=== PATIENT | female | born 1995 | race Caucasian/White ===

== ENCOUNTER → 2017-12-27 14:06 | Outpatient (CLI) | payer BC, SELFPAY ==
--- NOTE | 2017-12-27 14:09 | VDLE_ITS ---
Reason For Study: RT LEG PAIN RIGHT LEFT GSV is normal. CFV is compressible, spontaneous, phasic, CFV is compressible, spontaneous, phasic, competent, and demonstrates normal competent and demonstrates normal augmentation. augmentation. FV is compressible, spontaneous, phasic, competent and demonstrates normal augmentation. POP V is compressible, spontaneous, phasic, competent and demonstrates normal augmentation. T/P Trunk is compressible. PTV is compressible. RT PerV is compressible. Procedure Exam performed in department. A preliminary report was called and/or faxed to LYNETTE REEDER. Interpretation Summary Deep veins of the right lower extremity are patent and compressible segmentally. There is no evidence of right lower extremity deep vein thrombosis. Valvular competence appears intact within the proximal deep venous system on the right . The right greater saphenous vein appears patent and compressible segmentally. Ordering Physician: Lynette Reeder Referring Physician: EDU FOSTER Performed By: Lary Balderrama, PAUL, RVT
== END ==
PROVIDERS: Family Provider Family Medicine; PCP Family Medicine; Visit Provider Nurse Practitioner Adult Health
DX: M79.604 Pain in right leg (principal)
CPT/HCPCS: 93971

== ENCOUNTER → 2018-01-23 13:58 | Outpatient (CLI) | payer BC, SELFPAY ==
[2018-01-23 14:58] LABS: Absolute Lymphocyte Count 2.09 X10^3/ul (0.83-4.51); Absolute Neutrophil Count 3.3 X10^3/uL (2.0-7.7); Basophil# 0.04 X10^3/uL; Basophil% 0.7 % (0-1); Eosinophil# 0.12 X10^3/uL; Erythrocyte Sedimentation Rate 5 mm/hr (0-20); Hemoglobin 14.9 g/dl (12.0-15.0); Lymphocyte # 2.09 X10^3/ul (4.0); Lymphocyte % 34.7 % (19-41); Mean Corp Hgb Conc 33.9 g/gl (32-36); Mean Corpuscular Hgb 29.3 pg (27.0-32.0); Mean Corpuscular Volume 86.4 fL (81-99); Mean Platelet Vol. 12.5 fl (6.2-12.0); Monocyte# 0.52 X10^3/uL; Monocyte% 8.6 % (0-10); Neutrophil # 3.25 X10^3/uL (2.7-7.7); Neutrophil % 53.8 % (47-70); Platelet Count 183 K/mm3 (150-450); RBC Distribution Width CV 12.4 % (11.6-14.6); RBC Distribution Width SD 39.5 fl (35.1-43.9); Red Blood Count 5.09 M/mm3 (4.2-5.4)
[2018-01-23 14:59] LABS: POSITIVE COUNT NO; POSITIVE DIFFERENTIAL NO; POSITIVE MORPHOLOGY NO
[2018-01-23 15:00] LABS: CRP < 2.90 mg/L (0.0-3.0)
== END ==
PROVIDERS: Family Provider Family Medicine; PCP Family Medicine; Visit Provider Family Medicine
DX: L03.90 Cellulitis, unspecified (principal); S82.891S Other fracture of right lower leg, sequela
CPT/HCPCS: 36415; 85025; 85652; 86140

== ENCOUNTER → 2018-01-31 16:41 | Outpatient (CLI) | payer BC, SELFPAY ==
--- NOTE | 2018-01-31 17:00 | CT_ITS ---
Exam: CT of the right ankle, noncontrast. HISTORY: Right ankle fracture. Possible infection. COMPARISON: Previous CT scan 08/03/2017. DLP: 351 CTDI: 15 FINDINGS: No definite change. Stable appearance of compression plate and screws across the distal fibula. Stable appearance of fixation device through the tibia and fibula. Normal ankle mortise. No focal destructive lesions or specific evidence for osteomyelitis. No evidence for soft tissue gas. No definite fracture line is visible through the fibula. CT/Extremity Lower WITH Contrast IMPRESSION: No focal destructive lesions or specific evidence for osteomyelitis. Electronically Signed: Noe Aguilar MD at 10:46 EDT , Service support ,
== END ==
PROVIDERS: Family Provider Family Medicine; PCP Family Medicine; Visit Provider Family Medicine
DX: S82.891S Other fracture of right lower leg, sequela (principal)
CPT/HCPCS: 73701

== ENCOUNTER → 2018-02-12 08:11 | Outpatient (CLI) | payer BC, SELFPAY ==
[2018-02-12 10:16] LABS: Absolute Lymphocyte Count 1.09 X10^3/ul (0.83-4.51); Absolute Neutrophil Count 3.2 X10^3/uL (2.0-7.7); Basophil# 0.01 X10^3/uL; Basophil% 0.2 % (0-1); Eosinophil# 0.08 X10^3/uL; Eosinophils% 1.6 % (0-5); Hematocrit 41.2 % (37-47); Hemoglobin 14.1 g/dl (12.0-15.0); Lymphocyte # 1.09 X10^3/ul (4.0); Lymphocyte % 22.1 % (19-41); Mean Corp Hgb Conc 34.2 g/gl (32-36); Mean Corpuscular Hgb 29.7 pg (27.0-32.0); Mean Corpuscular Volume 86.9 fL (81-99); Mean Platelet Vol. 12.5 fl (6.2-12.0); Monocyte# 0.57 X10^3/uL; Monocyte% 11.6 % (0-10); Neutrophil # 3.17 X10^3/uL (2.7-7.7); Neutrophil % 64.3 % (47-70); Platelet Count 174 K/mm3 (150-450); RBC Distribution Width CV 12.3 % (11.6-14.6); RBC Distribution Width SD 38.4 fl (35.1-43.9); Red Blood Count 4.74 M/mm3 (4.2-5.4); White Blood Count 4.9 K/mm3 (4.4-11.0)
[2018-02-12 10:21] LABS: POSITIVE COUNT NO; POSITIVE DIFFERENTIAL NO; POSITIVE MORPHOLOGY NO
[2018-02-12 10:27] LABS: ALB/GLOB Ratio 0.9 RATIO (0.9-2.4); AST(SGOT) 24 U/L (15-37); Alanine Aminotransfer ALT/SGPT 39 U/L (13-56); Albumin, Serum 3.5 g/dL (3.2-5.0); Alkaline Phosphatase 93 U/L (45-117); Anion Gap 5 (5-15); BUN 10 mg/dL (7-18); BUN/Creat Ratio 13.2 RATIO (10-20); Calcium,Total 8.2 mg/dL (8.5-10.1); Chloride 106 mmol/L (98-107); Creatinine, Serum 0.76 mg/dL (0.55-1.02); EST Glomerular Filtration Rate 103 mL/min (>60); Est Glom Filt Rate - Afr Amer 124 mL/min (>60); Globulin 3.8 g/dL (2.2-4.2); Glucose 90 mg/dL (74-106); Protein, Total 7.3 g/dL (6.4-8.2); Sodium Level 138 mmol/L (136-145)
== END ==
PROVIDERS: Family Provider Family Medicine; PCP Family Medicine; Visit Provider Family Medicine
DX: Z01.818 Encounter for other preprocedural examination (principal)
CPT/HCPCS: 36415; 80053; 85025

== ENCOUNTER 2018-02-19 11:39 | Day surgery (SDC) | payer BC, SELFPAY ==
[2018-02-19 11:57] LABS: Internal QC Validated? YES +Cl - CLEAR BKGD; Pregnancy, Urine Negative Negative
[2018-02-19 12:02] VITALS: BP 124/79; PULSE 79; RESP 18; TEMP 36.4; O2SAT 100; BMI 28.2
--- NOTE | 2018-02-19 13:15 | RAD_ITS ---
STUDY: X-RAY - RIGHT ANKLE REASON FOR EXAM: Female, 22 years old. Hardware removal right ankle TECHNIQUE: 4 view(s) of the ankle. COMPARISON: ct 3..18 FINDINGS: Sideplate has been removed from the distal fibula. Lucent areas are visualized within the distal fibula consistent for prior hardware placement. Normal tibiotalar articulation and ankle mortise. A cortical screw has been removed from the medial malleolus. Normal visualized talus and calcaneus. The visualized subtalar, talonavicular, calcaneocuboid and tarsal articulations are normal. The soft tissue structures are unremarkable. RAD/Ankle min 3 Views IMPRESSION: Successful hardware removal. Electronically Signed: Van Dao MD at 16:57 EDT , Service support ,
--- NOTE | 2018-02-19 13:20 | CYST_PTH ---
PATIENT: SAPPHIRE MARQUEZ LOC: [facility] [place] U#:[id number] AGE/SX: 22/F ROOM: RE02/19/[address]: Dr. Gerard Galvan DPM : 1995 BED: DIS: 02/19/2018 SPEC #: [id number] RECD: 02/19/18 15:57 STATUS: LEIF CHAMP #: [id number] JACOB: 02/19/18 13:[address]: Gerard Galvan DEPT: SURGICAL PATHOLOGY RECD BY: Gurvinder De La Torre ENTERED: 02/20/18 09:19 SP TYPE: Cyst OTHR DR: Dr. Vincent Argueta MD Tissues: CYST Procedures: Special Stain Group I Surgery Specimen Level IV AFB Stain (control) GMS Stain (control) HEADER OPERATION: Removal hardware, right ankle with possible mass/cyst removal PRE-OP DIAGNOSIS: Retained hardware right ankle TISSUE SUBMITTED: Cyst right ankle MICROSCOPIC DIAGNOSIS Cyst of right ankle, excision: Fibrous tissue with associated acute and chronic inflammation and granulation. Negative for acid-fast bacilli and fungal organisms. AM:ivrgie 02/21/18 COMMENT AFB and GMS stains with matched controls were used in the evaluation of this case. MICROSCOPIC DESCRIPTION Slides are reviewed. GROSS DESCRIPTION Received in fixative is one container labeled with the patient's name and designated ankle cyst. The specimen consists of multiple irregular fragments of light to dark stephens soft tissue that in aggregate measure 3 x 2.2 x 0.2 cm. The specimen is totally submitted in two cassettes. / AM:virgie 02/20/18 TC:2 CPT: 67913, 36021 x2
[2018-02-19] MEDS: Cefazolin 2 GM in 0.9% Normal Saline 100 ML IV (13:44)
[2018-02-19] MEDS: Bupivacaine Mpf 0.5% 30 ML VIAL (14:52)
--- NOTE | 2018-02-19 15:01 | PCM.DC.POD ---
Discharge Diet: Light diet - advance as tolerated Discharge Activity: May Not Drive Weight Bearing Status: Partial weight bearing - Protected weightbearing right foot/ankle with use of CAM Walker boot Call your doctor if your incision/area has: Continuous Slow Oozing, Sudden Increased Bleeding, Increased Pain/ Swelling, Foul Smelling Discharge Call your doctor if you observe: Fever of 101 or Higher, Coldness, Increased Pain, Shortness of breath, Chest pain, Increased palpitations (irregular heartbeat), Calf discomfort, Uncontrolled pain Cleanse incision/area with: Do not get Incision Wet, Keep Dressing Clean & Dry Allergies/Adverse Reactions: Allergies copper Allergy (Verified 02/19/18 12:01) Rash oseltamivir [From Tamiflu] Allergy (Verified 02/19/18 12:01) Rash Medications to take at Discharge Hydrocodone/Acetaminophen [Vicodin 5-300 mg Tablet] 1 - 2 tab PO Q6H PRN PRN 3 Days #30 tab 02/19/18 The following prescriptions were given: Hydrocodone/Acetaminophen [Vicodin 5-300 mg Tablet] 1 - 2 tab PO Q6H PRN PRN 3 Days #30 tab PRN Reason: Pain Primary Care Physician: Khanh Argueta MD [Primary Care Provider] - Please Follow Up With: Gerard Galvan DPM When: within 1 week or sooner if needed
--- NOTE | 2018-02-19 15:02 | PCM.OPRPT ---
Report of Operation Date of Procedure: 02/19/18 Pre-Operative Diagnosis: Painful hardware right ankle. Soft tissue mass/cyst (possible abscess) right ankle Post-Operative Diagnosis: Same Surgery/Procedure Performed:: Removal of hardware right ankle. Mass/cyst (possible abscess) removal right ankle geophysical party chief: Yes - Dr. Mena Type of Anesthesia:: General Specimen's removed: 1. Excised mass/cyst (possible abscess) sent to pathology. 2. Culture of soft tissue right ankle sent to microbiology. 3. Culture of bone right fibular sent to microbiology Description of Procedure: Indications: This is a 22 year old female with history of right ankle fracture s/p open reduction internal fixation by Dr. Solorzano. Patient subsequently developed painful hardware with possible underlying soft tissue mass/cyst/abscess. She has elected to proceed forward with removal of the painful retained hardware with removal/excision of possible mass/cyst/abscess. This was discussed with her in great detail, the procedure was reviewed with her as well as all of the possible benefits, risks, goals, expectations, typical/estimated healing time. She expressed understanding and agreement. The consent forms were reviewed with her and she freely signed them. All of her questions were answered. No guarantees were given nor implied. Operative Procedure: The patient was brought back to the operating room and was placed on the operating room table in the supine position. She was carefully secured to the operating room table with a safety belt around her waist. A time out was performed and the patient was properly identified and the surgical plan was confirmed. The patient received 2 grams of IV Ancef for antibiotic prophylaxis. A well padded pneumatic tourniquet was applied around the right thigh. The patient did receive general anesthesia per the anesthesiologist. The right foot/ankle/leg were scrubbed, prepped, draped in the usual aseptic fashion. A timeout was performed and the patient was properly identified and the surgical plan was confirmed. The right foot was elevated for 3 minutes and the right thigh pneumatic tourniquet was inflated to 350mmHg. Attention was directed to the right ankle. There questionable soft tissue mass directly overlying the distal fibular plate as the site was soft consistent with possible mass/cyst/chronic abscess. 5.5mL of 0.5% Bupivacaine plain was given around the lateral ankle for further pain control. A linear longitudinal skin incision was made overlying the lateral distal fibula. Careful dissection was completed down through the subcutaneous tissue layer. A soft tissue mass was encountered localized to the area. This was incised and was carefully dissected out, it was excised. Of note, when it was incised there was a pale whitish fluid present, questionable purulence consistent with a chronic abscess. The mass/abscess was encapsulated, which was excised and removed, it was sent to pathology for further evaluation. The contents were cultured and sent to microbiology for further evaluation. The site was flushed out with copious amounts of normal saline solution, and there was no evidence of remaining mass/abscess at this time. An incision was made overlying the fibular plate. Dissection was complete down to the fibular plate. The plate was identified and was removed, removing the screws as well, in toto. Also the interfragment screw was identified and was removed in toto. The syndesmotic tightrope was identified and was removed from the lateral aspect. A small skin incision was made to the medial ankle at the level of the medial button of the syndesmotic tightrope. Dissection was completed down to the medial button, and this was removed in toto. There was noted to be a ledge of prominent bone to the lateral aspect of the distal fibula at the site of the previous fracture. This ledge of prominent bone was resected using a bone cutting rongeur, and this was sent to microbiology as a bone culture. The bone was hard, white, and healthy in appearance. The fracture was healed. The remaining tissues appeared to be healthy and viable, appeared to be free of infection, there was no necrosis, no purulence, no jose tissue at this time. The peroneal tendons appeared to be healthy and viable. The ankle was put through range of motion and there was noted to be good, smooth range of motion with no popping, clicking or crepitus present. The distal tib fib syndesmosis was stressed and was stable with no instability present. There was no gapping at the medial gutter, and there was normal tib fib overlap. There was no instability to the ankle, negative anterior drawer, and normal talar tilt at this time. Intraoperative flouroscopy was used to confirm this as well as complete resection of all hardware. The site was flushed out with copious amounts of normal saline solution. Due to her Vicryl allergy/previous reaction, this was not used. The skin was reapproximated using 3-0 Nylon. All vital structure, including all vital neurovascular structures were properly identified and protected as necessary throughout the procedure. The pneumatic tourniquet was deflated, there was immediate return of vascular flow to the foot, ankle and all toes. CFT < 2 seconds to all toes, and had normal temperature gradient present. An additional 10mL of 0.5% Bupivacaine plain was given as a local nerve block around the surgical site for further post operative pain control. A dressing was applied which consisted of Betadine soaked adaptic, 4x4 gauze, kerlix and marcella dressing. The patient tolerated the above operative procedure well at the anesthesia well with no complications. The patient was transported to the recovery room with vital signs stable and in good condition. Post operative orders were placed. Post operative instructions were reviewed with patient and her mother (who was with patient today). Protected weightbearing right foot with use of CAM Walker, keep right foot elevated, keep dressing clean, dry and intact. Prescription for Percocet 5mg/325mg was prescribed: 1-2 tabs PO q 6 hours PRN pain for pain control (relates she had Vicodin before and did not help). Patient to follow up with me within 1 week, sooner if needed. Grafts/Implants Used: None - Complications None
--- NOTE | 2018-02-19 15:05 | OP.PCM_ITS ---
Report of Operation Date of Procedure: 02/19/18 Pre-Operative Diagnosis: Painful hardware right ankle. Soft tissue mass/cyst ( possible abscess) right ankle Post-Operative Diagnosis: Same Surgery/Procedure Performed:: Removal of hardware right ankle. Mass/cyst ( possible abscess) removal right ankle superintendent drilling: Yes - Dr. Mena Type of Anesthesia:: General Specimen's removed: 1. Excised mass/cyst (possible abscess) sent to pathology. 2. Culture of soft tissue right ankle sent to microbiology. 3. Culture of bone right fibular sent to microbiology Description of Procedure: Indications: This is a 22 year old female with history of right ankle fracture s /p open reduction internal fixation by Dr. Solorzano. Patient subsequently developed painful hardware with possible underlying soft tissue mass/cyst/ abscess. She has elected to proceed forward with removal of the painful retained hardware with removal/excision of possible mass/cyst/abscess. This was discussed with her in great detail, the procedure was reviewed with her as well as all of the possible benefits, risks, goals, expectations, typical/estimated healing time. She expressed understanding and agreement. The consent forms were reviewed with her and she freely signed them. All of her questions were answered. No guarantees were given nor implied. Operative Procedure: The patient was brought back to the operating room and was placed on the operating room table in the supine position. She was carefully secured to the operating room table with a safety belt around her waist. A time out was performed and the patient was properly identified and the surgical plan was confirmed. The patient received 2 grams of IV Ancef for antibiotic prophylaxis. A well padded pneumatic tourniquet was applied around the right thigh. The patient did receive general anesthesia per the anesthesiologist. The right foot/ankle/leg were scrubbed, prepped, draped in the usual aseptic fashion. A timeout was performed and the patient was properly identified and the surgical plan was confirmed. The right foot was elevated for 3 minutes and the right thigh pneumatic tourniquet was inflated to 350mmHg. Attention was directed to the right ankle. There questionable soft tissue mass directly overlying the distal fibular plate as the site was soft consistent with possible mass/cyst/chronic abscess. 5.5mL of 0.5% Bupivacaine plain was given around the lateral ankle for further pain control. A linear longitudinal skin incision was made overlying the lateral distal fibula. Careful dissection was completed down through the subcutaneous tissue layer. A soft tissue mass was encountered localized to the area. This was incised and was carefully dissected out, it was excised. Of note, when it was incised there was a pale whitish fluid present, questionable purulence consistent with a chronic abscess. The mass/abscess was encapsulated, which was excised and removed, it was sent to pathology for further evaluation. The contents were cultured and sent to microbiology for further evaluation. The site was flushed out with copious amounts of normal saline solution, and there was no evidence of remaining mass/ abscess at this time. An incision was made overlying the fibular plate. Dissection was complete down to the fibular plate. The plate was identified and was removed, removing the screws as well, in toto. Also the interfragment screw was identified and was removed in toto. The syndesmotic tightrope was identified and was removed from the lateral aspect. A small skin incision was made to the medial ankle at the level of the medial button of the syndesmotic tightrope. Dissection was completed down to the medial button, and this was removed in toto. There was noted to be a ledge of prominent bone to the lateral aspect of the distal fibula at the site of the previous fracture. This ledge of prominent bone was resected using a bone cutting rongeur, and this was sent to microbiology as a bone culture. The bone was hard, white, and healthy in appearance. The fracture was healed. The remaining tissues appeared to be healthy and viable, appeared to be free of infection, there was no necrosis, no purulence, no jose tissue at this time. The peroneal tendons appeared to be healthy and viable. The ankle was put through range of motion and there was noted to be good, smooth range of motion with no popping, clicking or crepitus present. The distal tib fib syndesmosis was stressed and was stable with no instability present. There was no gapping at the medial gutter, and there was normal tib fib overlap. There was no instability to the ankle, negative anterior drawer, and normal talar tilt at this time. Intraoperative flouroscopy was used to confirm this as well as complete resection of all hardware. The site was flushed out with copious amounts of normal saline solution. Due to her Vicryl allergy/previous reaction, this was not used. The skin was reapproximated using 3-0 Nylon. All vital structure, including all vital neurovascular structures were properly identified and protected as necessary throughout the procedure. The pneumatic tourniquet was deflated, there was immediate return of vascular flow to the foot , ankle and all toes. CFT < 2 seconds to all toes, and had normal temperature gradient present. An additional 10mL of 0.5% Bupivacaine plain was given as a local nerve block around the surgical site for further post operative pain control. A dressing was applied which consisted of Betadine soaked adaptic, 4x4 gauze, kerlix and marcella dressing. The patient tolerated the above operative procedure well at the anesthesia well with no complications. The patient was transported to the recovery room with vital signs stable and in good condition. Post operative orders were placed. Post operative instructions were reviewed with patient and her mother (who was with patient today). Protected weightbearing right foot with use of CAM Walker, keep right foot elevated, keep dressing clean, dry and intact. Prescription for Percocet 5mg/325mg was prescribed: 1-2 tabs PO q 6 hours PRN pain for pain control (relates she had Vicodin before and did not help). Patient to follow up with me within 1 week, sooner if needed. Grafts/Implants Used: None - Complications None
[2018-02-19 15:12] VITALS: BP 121/69; BP 124/79; PULSE 79; RESP 16; TEMP 36; O2SAT 92
[2018-02-19 15:15] VITALS: BP 121/60; BP 124/79; PULSE 63; RESP 16; O2SAT 100
[2018-02-19 15:30] VITALS: BP 121/66; BP 124/79; PULSE 84; RESP 16; O2SAT 98
[2018-02-19 15:45] VITALS: BP 124/79; BP 125/75; PULSE 82; RESP 16; TEMP 36.1; O2SAT 99
[2018-02-19 16:09] VITALS: BP 124/79
== END 2018-02-19 16:48 | disposition home or self-care (01) ==
LOC: SDC 11:40 → AC 11:43
PROVIDERS: Anesthesiology; Family Provider Family Medicine; PCP Family Medicine; Visit Provider Podiatrist
PROC: (CPT 20680; principal; 2018-02-19 13:05)
DX: T84.84XA Pain due to internal orthopedic prosthetic devices, implants and grafts, initial encounter (principal); M85.461 Solitary bone cyst, right tibia and fibula
CPT/HCPCS: 20680; 27635; 73610; 76000; 81025; 87070; 87075; 87077; 87186; 87205; 88304; 88305; 88312; J7120; J2405

== ENCOUNTER → 2018-03-12 11:50 | Outpatient (CLI) | payer BC, SELFPAY ==
[2018-03-12 14:18] LABS: Erythrocyte Sedimentation Rate 4 mm/hr (0-20); Hematocrit 39.4 % (37-47); Hemoglobin 13.4 g/dl (12.0-15.0); Mean Corpuscular Hgb 29.6 pg (27.0-32.0); Mean Corpuscular Volume 87.2 fL (81-99); Mean Platelet Vol. 13.7 fl (6.2-12.0); Platelet Count 147 K/mm3 (150-450); RBC Distribution Width CV 12.3 % (11.6-14.6); RBC Distribution Width SD 38.4 fl (35.1-43.9); Red Blood Count 4.52 M/mm3 (4.2-5.4); White Blood Count 4.2 K/mm3 (4.4-11.0)
[2018-03-12 14:20] LABS: Scan Indicated on CBC? Y/N NO
[2018-03-12 14:22] LABS: Anion Gap 7 (5-15); BUN 12 mg/dL (7-18); BUN/Creat Ratio 12.4 RATIO (10-20); Calcium,Total 8.8 mg/dL (8.5-10.1); Chloride 105 mmol/L (98-107); Creatinine, Serum 0.97 mg/dL (0.55-1.02); EST Glomerular Filtration Rate 77 mL/min (>60); Est Glom Filt Rate - Afr Amer 93 mL/min (>60); Glucose 90 mg/dL (74-106); Potassium 3.7 mmol/L (3.5-5.1); Sodium Level 135 mmol/L (136-145)
[2018-03-12 15:09] LABS: HIV - WCH Non-Reactive (Nonreactive)
[2018-03-13 04:08] LABS: HEPATITIS B SURFACE AG Negative (Negative)
[2018-03-13 17:42] LABS: Hep C Antibodies <0.1 s/co ratio (0.0-0.9); Hepatitis B Core AB IgM Negative (Negative)
== END ==
PROVIDERS: Internal Medicine Infectious Disease; Family Provider Family Medicine; PCP Family Medicine; Visit Provider Family Medicine
DX: M86.9 Osteomyelitis, unspecified (principal)
CPT/HCPCS: 36415; 80048; 85027; 85652; 86703; 86705; 86803; 87340

== ENCOUNTER → 2018-08-08 15:48 | Outpatient (CLI) | payer BC, SELFPAY ==
[2018-08-08 18:24] LABS: Estradiol 81.1 pg/mL; Prolactin 14.5 ng/mL; Thyroid Stim Hormone (TSH) 1.28 uIU/mL (0.358-3.74)
[2018-08-10 10:51] LABS: DHEA Sulfate 303.8 ug/dL (110.0-431.7)
== END ==
PROVIDERS: Family Provider Family Medicine; PCP Family Medicine; Visit Provider Family Medicine
DX: L70.9 Acne, unspecified (principal); R14.0 Abdominal distension (gaseous)
CPT/HCPCS: 36415; 82533; 82627; 82670; 84146; 84403; 84443; 82626

== ENCOUNTER → 2019-05-23 | Outpatient (CLI) | payer BC, SELFPAY ==
[2019-05-23 17:45] LABS: Absolute Neutrophil Count 3.8 X10^3/uL (2.0-7.7); Basophil# 0.05 X10^3/uL; Basophil% 0.7 % (0-1); Eosinophil# 0.11 X10^3/uL; Eosinophils% 1.6 % (0-5); Hematocrit 38.5 % (37-47); Hemoglobin 12.9 g/dl (12.0-15.0); Lymphocyte % 34.2 % (19-41); Mean Corp Hgb Conc 33.5 g/gl (32-36); Mean Corpuscular Hgb 29.6 pg (27.0-32.0); Mean Corpuscular Volume 88.3 fL (81-99); Mean Platelet Vol. 12.3 fl (6.2-12.0); Monocyte# 0.44 X10^3/uL; Monocyte% 6.5 % (0-10); Neutrophil # 3.82 X10^3/uL (2.7-7.7); Platelet Count 173 K/mm3 (150-450); RBC Distribution Width CV 12.1 % (11.6-14.6); RBC Distribution Width SD 38.6 fl (35.1-43.9); Red Blood Count 4.36 M/mm3 (4.2-5.4); White Blood Count 6.7 K/mm3 (4.4-11.0)
[2019-05-23 17:57] LABS: POSITIVE COUNT NO; POSITIVE DIFFERENTIAL NO; POSITIVE MORPHOLOGY NO
[2019-05-23 18:03] LABS: ALB/GLOB Ratio 1.1 RATIO (0.9-2.4); AST(SGOT) 21 U/L (15-37); Alanine Aminotransfer ALT/SGPT 22 U/L (13-56); Albumin, Serum 3.8 g/dL (3.2-5.0); Alkaline Phosphatase 61 U/L (45-117); BUN 15 mg/dL (7-18); BUN/Creat Ratio 17.1 RATIO (10-20); Calcium,Total 8.7 mg/dL (8.5-10.1); Chloride 101 mmol/L (98-107); Creatinine, Serum 0.88 mg/dL (0.55-1.02); EST Glomerular Filtration Rate 85 mL/min (>60); Est Glom Filt Rate - Afr Amer 103 mL/min (>60); Globulin 3.4 g/dL (2.2-4.2); Glucose 97 mg/dL (74-106); Potassium 3.2 mmol/L (3.5-5.1); Protein, Total 7.2 g/dL (6.4-8.2); Sodium Level 139 mmol/L (136-145)
[2019-05-23 18:04] LABS: Anion Gap 9 (5-15); Thyroid Stim Hormone (TSH) 0.96 uIU/mL (0.358-3.74)
== END | disposition home or self-care (01) ==
LOC: MTLAB 16:39
PROVIDERS: Family Provider Family Medicine; PCP Family Medicine; Referring Provider Family Medicine; Visit Provider Family Medicine
DX: R00.2 Palpitations (principal)
CPT/HCPCS: 36415; 80053; 83735; 84443; 85025

== ENCOUNTER → 2019-05-28 | Outpatient (CLI) | payer BC, SELFPAY ==
[2019-05-28 17:53] LABS: Potassium 3.8 mmol/L (3.5-5.1)
== END | disposition home or self-care (01) ==
LOC: MFPLAB 15:54
PROVIDERS: Family Provider Family Medicine; PCP Family Medicine; Referring Provider Family Medicine; Visit Provider Family Medicine
DX: E87.6 Hypokalemia (principal)
CPT/HCPCS: 36415; 84132

== ENCOUNTER → 2019-06-12 | Outpatient (CLI) | payer BC, SELFPAY ==
[2019-06-12 17:58] LABS: Potassium 3.6 mmol/L (3.5-5.1)
== END | disposition home or self-care (01) ==
LOC: MFPLAB 16:12
PROVIDERS: Family Provider Family Medicine; PCP Family Medicine; Referring Provider Family Medicine; Visit Provider Family Medicine
DX: E87.6 Hypokalemia (principal)
CPT/HCPCS: 36415; 84132

== ENCOUNTER → 2019-06-20 15:51 | Outpatient (CLI) | payer BC, SELFPAY ==
[2019-06-20 17:24] LABS: Absolute Lymphocyte Count 2.21 X10^3/uL (0.83-4.51); Absolute Neutrophil Count 3.4 X10^3/uL (2.0-7.7); Basophil# 0.08 X10^3/uL; Basophil% 1.3 % (0-1); Eosinophil# 0.09 X10^3/uL; Eosinophils% 1.4 % (0-5); Hematocrit 40.5 % (37-47); Hemoglobin 13.5 g/dL (12.0-15.0); Lymphocyte # 2.21 X10^3/ul (4.0); Mean Corp Hgb Conc 33.3 g/dL (32-36); Mean Corpuscular Hgb 29.7 pg (27.0-32.0); Mean Corpuscular Volume 89.2 fL (81-99); Mean Platelet Vol. 12.9 fl (6.2-12.0); Monocyte# 0.57 X10^3/uL; NRBC Flagged by Analyzer 0 % (0-5); Neutrophil # 3.36 X10^3/uL (2.7-7.7); Neutrophil % 53.1 % (47-70); Platelet Count 183 K/mm3 (150-450); RBC Distribution Width CV 11.7 % (11.6-14.6); RBC Distribution Width SD 37.6 fl (35.1-43.9); Red Blood Count 4.54 M/mm3 (4.2-5.4); White Blood Count 6.3 K/mm3 (4.4-11.0)
[2019-06-20 17:44] LABS: Erythrocyte Sedimentation Rate 6 mm/hr (0-20)
[2019-06-20 17:52] LABS: Anion Gap 11 (5-15); BUN 12 mg/dL (7-18); BUN/Creat Ratio 13.3 RATIO (10-20); CRP < 2.90 mg/L (0.0-3.0); Calcium,Total 8.5 mg/dL (8.5-10.1); Chloride 100 mmol/L (98-107); EST Glomerular Filtration Rate 82 mL/min (>60); Est Glom Filt Rate - Afr Amer 100 mL/min (>60); Glucose 88 mg/dL (74-106); Potassium 3.5 mmol/L (3.5-5.1); Sodium Level 138 mmol/L (136-145)
== END ==
PROVIDERS: Family Provider Family Medicine; PCP Family Medicine; Referring Provider Family Medicine; Visit Provider Podiatrist
DX: M86.8X7 Other osteomyelitis, ankle and foot (principal)
CPT/HCPCS: 36415; 80048; 85025; 85652; 86140

== ENCOUNTER → 2019-06-28 | Outpatient (CLI) | payer BC, SELFPAY ==
[2019-06-26 15:11] VITALS: BMI 28.2
--- NOTE | 2019-06-28 16:22 | MRI_ITS ---
STUDY: MRI RIGHT ANKLE WITHOUT CONTRAST REASON FOR EXAM: Female, 23 years old. Right ankle pain. History of metal plate with removal. Concern for potential infection. TECHNIQUE: Standardized fat and water weighted pulse sequences were obtained in all 3 orthogonal planes. COMPARISON: X-ray dated February 19, 2018. CT scan dated January 31, 2018. FINDINGS: Nonspecific T2 marrow signal at the distal fibula (coronal image 10 series 11). Ghost tracks at the distal fibula and traversing the syndesmosis (axial image 3, 12 and 13 series 3). No acute fracture line. No acute dislocation. No acute bone destruction. Mild cortical thickening at the distal fibula. Distal tibia 5 mm osteochondral lesion (sagittal image 9 series 7). Remainder of the tibiotalar articular cartilage preserved. Subtalar articular cartilage preserved. Calcaneocuboid articular cartilage preserved. Talonavicular articular cartilage preserved. Naviculocuneiform articular cartilage preserved. Normal tarsal metatarsal articulations. Soft tissue swelling/scarring overlies the distal fibula/lateral malleolus. Small ganglion cyst adjacent to the posterior talofibular ligament (axial image 19 series 4 and sagittal image 15 series 8) measuring up to 8 mm in greatest dimension. Trace tibiotalar/subtalar joint effusion. Chronic posterior talofibular ligament sprain. Chronic syndesmotic ligament sprains (axial image 13 series 4). Mild chronic calcaneofibular ligament thickening (axial image 23 series 4). Normal deltoid ligament. Normal spring ligament. Normal sinus tarsi subtalar ligaments. Normal Lisfranc ligament. Normal posterior tibialis tendon. Normal flexor digitorum longus tendon. Normal flexor hallucis longus tendon. Normal peroneus longus and brevis tendons. Normal tibialis anterior tendon. Normal extensor hallucis longus tendon. Normal extensor digitorum longus tendons. Normal Achilles tendon and teno-osseous insertion.Normal plantar fascia. Normal plantar calcaneal tubercles. Normal intrinsic muscles of the rearfoot. MRI/Lower Ext Joint Only (Routine) IMPRESSION: Nonspecific distal fibular bone marrow edema with mild cortical thickening. No acute bone destruction or abscess formation. Possible inflammatory/reactive/chronic infectious etiologies. Correlate blood cultures, ESR/CRP and gadolinium nuclear medicine scan. Distal tibial 5 mm osteochondral lesion Chronic syndesmotic and lateral ligament sprains with small ganglion cyst Mild lateral malleolus soft tissue swelling/cellulitis Trace joint effusions Electronically Signed: Min Gutierrez DO at 8:23 EDT Tel , Service support ,
== END | disposition home or self-care (01) ==
LOC: MRI 16:14
PROVIDERS: Family Provider Family Medicine; PCP Family Medicine; Referring Provider Podiatrist; Visit Provider Podiatrist
DX: M86.9 Osteomyelitis, unspecified (principal)
CPT/HCPCS: 73721